=== PATIENT | female | born 1965 | race Two or more races ===

== ENCOUNTER 2025-03-19 23:44 | Inpatient (IN) | payer OTHER ==
[2025-03-20 00:24] VITALS: BMI 27.1
[2025-03-20 01:50] LABS: POTASSIUM 5.1 mmol/L (3.5-5.1); SODIUM 135 mmol/L (136-145)
[2025-03-20 01:53] LABS: ALBUMIN 3.6 g/dl (3.4-5.0); ANION GAP 15 mmol/L (4-13); BLOOD UREA NITROGEN 81.6 mg/dL (7-18); CALCIUM 10.2 mg/dL (8.5-10.1); CHLORIDE 97 mmol/L (98-107); CO2 23 mmol/L (21-32); GLUCOSE,RANDOM 159 mg/dL (74-106)
[2025-03-20 01:56] LABS: SGOT/AST 45 U/L (15-37); SGPT/ALT 66 U/L (13-61)
[2025-03-20 01:58] LABS: BILIRUBIN,TOTAL 0.4 mg/dL (0.2-1); TOT PROT 6.8 g/dl (6.4-8.2)
[2025-03-20 01:59] LABS: ALK PHOS 69 U/L (45-117)
[2025-03-20 02:02] LABS: PHOSPHOROUS 7.5 mg/dL (2.5-4.9)
[2025-03-20 02:19] LABS: ABSOLUTE IMMATURE GRANULOCYTES 0.05 x10^3/uL (0.0-0.031); BASOPHILS # 0.05 x10^3/uL (0.01-0.08); EOSINOPHIL % 2.6 % (0.7-5.8); EOSINOPHILS # 0.22 x10^3/uL (0.04-0.36); HEMATOCRIT 28.1 % (34.1-44.9); HEMOGLOBIN 8.8 g/dL (11.2-15.7); MCHC 31.3 g/dl (32.2-35.5); MEAN CELL VOLUME 85.4 fl (79.4-94.8); MEAN PLT VOLUME 10.2 fl (9.4-12.3); MONOCYTE # 0.56 x10^3/uL (0.24-0.86); MONOCYTE % 6.5 % (4.7-12.5); PLATELET COUNT 219 x10^3/uL (182-369); RDW 18.5 % (12.3-16.6)
[2025-03-20] MEDS: FUROSEMIDE 40 MG/4 ML INJECTABLE VIAL IVPUSH ONE ×2 (02:19→02:36)
[2025-03-20] MEDS: PANTOPRAZOLE SODIUM 40 MG VIAL IVPUSH ONE (02:19)
[2025-03-20] MEDS: FAMOTIDINE 20 MG/50 ML IVPB 20 MG/50 ML MG IVPB ONE (02:19)
[2025-03-20] MEDS: hydrALAZINE HCL 20 MG/ML VIAL IVPUSH ONE (02:19)
[2025-03-20 02:21] LABS: N-TERMINAL BNP 34620.1 pg/ml (5-125)
[2025-03-20] MEDS ORDERED: ACETAMINOPHEN INJECTION 100 ML ONE (02:21)
[2025-03-20] MEDS ORDERED: ONDANSETRON 4 MG/2 ML VIAL ONE (02:21)
[2025-03-20] MEDS: ACETAMINOPHEN 1000 MG/100 ML BAG IVPB ONE (02:36)
[2025-03-20] MEDS: ONDANSETRON 4 MG/2 ML VIAL IVPUSH ONE (02:36)
[2025-03-20 03:27] LABS: CHLORIDE 97 mmol/L (98-107); POTASSIUM 4.8 mmol/L (3.5-5.1); SODIUM 137 mmol/L (136-145)
[2025-03-20 03:28] LABS: CALCIUM 10.1 mg/dL (8.5-10.1)
[2025-03-20 03:29] LABS: ANION GAP 15 mmol/L (4-13); BLOOD UREA NITROGEN 82.2 mg/dL (7-18); CO2 25 mmol/L (21-32); GLUCOSE,RANDOM 148 mg/dL (74-106)
[2025-03-20] MEDS ORDERED: MAG HYDROX/AL HYDROX/SIMETH 30 ML UNIT-DOSE CUP ONE (05:38)
[2025-03-20] MEDS: MAG HYDROX/AL HYDROX/SIMETH 30 ML UNIT-DOSE CUP PO ONE (05:47)
[2025-03-20] MEDS ORDERED: SODIUM CHLORIDE 250 ML IV PRN (08:46)
[2025-03-20] MEDS ORDERED: PROMETHAZINE HCL 25 MG/1 ML VIAL IVPB PRN (10:22)
[2025-03-20] MEDS ORDERED: hydrALAZINE HCL 25 MG TABLET (FP) PO PRN ×2 (11:26→12:36)
[2025-03-20 11:34] LABS: HEPATITIS B SURF AG NON-MATERN NON-REACTIVE (NONREACTIVE)
[2025-03-20 12:03] LABS: HCV DIAGNOSTIC IN-HOUSE W/RFLX NON-REACTIVE (NONREACTIVE)
[2025-03-20] MEDS: EPOETIN ALFA-EPBX 3,000 UNIT/ML VIAL SQ SCH (13:46)
[2025-03-20] MEDS: INSULIN ASPART SLIDING SCALE (NOVOLOG) 1 VIAL SQ SCH (14:45)
[2025-03-20] MEDS ORDERED: NIFEdipine E.R. 30 MG TABLET PO SCH ×3 (15:47→22:00)
[2025-03-20] MEDS: NIFEdipine E.R. 30 MG TABLET PO ONE (16:41)
[2025-03-20] MEDS: hydrALAZINE HCL 50 MG TABLET (FP) PO ONE (16:41)
[2025-03-20] MEDS: ACETAMINOPHEN 325 MG TABLET (FP) PO PRN (18:28)
[2025-03-20] MEDS: LABETALOL HCL 100 MG TABLET (FP) PO SCH (21:06)
[2025-03-20] MEDS: hydrALAZINE HCL 50 MG TABLET (FP) PO SCH (21:06)
[2025-03-20] MEDS: NIFEdipine E.R. 30 MG TABLET PO SCH (21:06)
[2025-03-20] MEDS: DOCUSATE SODIUM 100 MG CAPSULE (FP) PO SCH (21:07)
[2025-03-21] MEDS: NIFEdipine 10 MG CAPSULE (FP) PO SCH (03:44)
[2025-03-21] MEDS: FAMOTIDINE 20 MG/50 ML IVPB 20 MG/50 ML MG IVPB SCH (03:44)
[2025-03-21] MEDS: NIFEdipine E.R. 30 MG TABLET PO SCH (03:45)
[2025-03-21] MEDS: PRAMOXINE HCL 1% (SARNA SENSITIVE) 222 ML BOTTLE TP PRN (06:15)
[2025-03-21 06:39] LABS: HEMATOCRIT 28.8 % (34.1-44.9); HEMOGLOBIN 8.8 g/dL (11.2-15.7); MCHC 30.6 g/dl (32.2-35.5); MEAN CELL VOLUME 86.5 fl (79.4-94.8); MEAN PLT VOLUME 10.4 fl (9.4-12.3); PLATELET COUNT 219 x10^3/uL (182-369); RDW 18.8 % (12.3-16.6)
[2025-03-21 06:43] LABS: POTASSIUM 3.8 mmol/L (3.5-5.1)
[2025-03-21 06:45] LABS: CALCIUM 9.8 mg/dL (8.5-10.1); MAGNESIUM 2.3 mg/dL (1.8-2.4)
[2025-03-21 06:49] LABS: PHOSPHOROUS 5.6 mg/dL (2.5-4.9)
[2025-03-21] MEDS ORDERED: FAMOTIDINE 20 MG/50 ML IVPB 20 MG/50 ML MG IVPB SCH (10:00)
[2025-03-21] MEDS: ONDANSETRON 4 MG/2 ML VIAL IVPUSH PRN (10:09)
[2025-03-21] MEDS: FUROSEMIDE 40 MG TABLET (FP) PO SCH (15:58)
[2025-03-22] MEDS: NIFEdipine E.R 60 MG TABLET PO SCH (00:27)
[2025-03-22] MEDS: GABAPENTIN 100 MG CAPSULE PO ONE (02:28)
[2025-03-22] MEDS: MELATONIN 5 MG TABLETS PO ONE (02:28)
[2025-03-22 07:40] LABS: HEMATOCRIT 28.8 % (34.1-44.9); HEMOGLOBIN 8.8 g/dL (11.2-15.7); MCHC 30.6 g/dl (32.2-35.5); MEAN CELL VOLUME 86.5 fl (79.4-94.8); MEAN PLT VOLUME 11.1 fl (9.4-12.3); PLATELET COUNT 228 x10^3/uL (182-369); RDW 18.9 % (12.3-16.6)
[2025-03-22 08:10] LABS: CHLORIDE 94 mmol/L (98-107); POTASSIUM 4.4 mmol/L (3.5-5.1); SODIUM 136 mmol/L (136-145)
[2025-03-22 08:19] LABS: ALBUMIN 3.6 g/dl (3.4-5.0); BLOOD UREA NITROGEN 41.6 mg/dL (7-18); CALCIUM 10.2 mg/dL (8.5-10.1)
[2025-03-22 08:20] LABS: ANION GAP 13 mmol/L (4-13); CO2 29 mmol/L (21-32); GLUCOSE,RANDOM 92 mg/dL (74-106); MAGNESIUM 2.7 mg/dL (1.8-2.4)
[2025-03-22 08:22] LABS: SGOT/AST 30 U/L (15-37); SGPT/ALT 70 U/L (13-61)
[2025-03-22 08:25] LABS: ALK PHOS 64 U/L (45-117); BILIRUBIN,TOTAL 0.6 mg/dL (0.2-1); TOT PROT 6.4 g/dl (6.4-8.2)
[2025-03-22 08:31] LABS: CREATININE 7.8 mg/dL (0.55-1.3)
[2025-03-22] MEDS ORDERED: SODIUM CHLORIDE 250 ML IV PRN (15:41)
[2025-03-22] MEDS: EPOETIN ALFA-EPBX 10,000 UNIT/ML VIAL IVPUSH ONE (17:58)
[2025-03-22] MEDS: HEPARIN NA (PORCINE) 5,000 UNITS/ML 1ML VIAL SQ SCH (22:55)
[2025-03-23] MEDS ORDERED: INSULIN ASPART SLIDING SCALE (NOVOLOG) 1 VIAL SQ ONE (06:37)
[2025-03-23 08:06] LABS: ABSOLUTE IMMATURE GRANULOCYTES 0.04 x10^3/uL (0.0-0.031); BASOPHILS # 0.04 x10^3/uL (0.01-0.08); EOSINOPHIL % 3.3 % (0.7-5.8); EOSINOPHILS # 0.19 x10^3/uL (0.04-0.36); HEMATOCRIT 31.6 % (34.1-44.9); HEMOGLOBIN 9.3 g/dL (11.2-15.7); MCHC 29.4 g/dl (32.2-35.5); MEAN CELL VOLUME 88.5 fl (79.4-94.8); MEAN PLT VOLUME 10.5 fl (9.4-12.3); PLATELET COUNT 231 x10^3/uL (182-369); RDW 19.6 % (12.3-16.6)
[2025-03-23 08:27] LABS: POTASSIUM 3.8 mmol/L (3.5-5.1)
[2025-03-23 08:38] LABS: CALCIUM 9.5 mg/dL (8.5-10.1)
[2025-03-23 08:39] LABS: ALBUMIN 3.6 g/dl (3.4-5.0); BLOOD UREA NITROGEN 24.1 mg/dL (7-18)
[2025-03-23 08:42] LABS: CREATININE 5.5 mg/dL (0.55-1.3)
[2025-03-23 08:44] LABS: BILIRUBIN,TOTAL 0.5 mg/dL (0.2-1); TOT PROT 6.8 g/dl (6.4-8.2)
[2025-03-23] MEDS ORDERED: guaiFENesin/D-METHORPHAN HB 10 ML UNIT-DOSE CUPS PO PRN (14:47)
[2025-03-24] MEDS ORDERED: REGADENOSON 0.4 MG/5 ML PRE-FILLED SYRINGE IVPUSH ONE (09:44)
[2025-03-24] MEDS: REGADENOSON 0.4 MG/5 ML PRE-FILLED SYRINGE IVPUSH ONE (11:30)
[2025-03-24 13:41] LABS: HEMATOCRIT 33.5 % (34.1-44.9); HEMOGLOBIN 10.1 g/dL (11.2-15.7); MCHC 30.1 g/dl (32.2-35.5); MEAN CELL VOLUME 88.4 fl (79.4-94.8); MEAN PLT VOLUME 9.7 fl (9.4-12.3); PLATELET COUNT 207 x10^3/uL (182-369); RDW 20.3 % (12.3-16.6)
[2025-03-24] MEDS ORDERED: ROCURONIUM BROMIDE 50 MG/5 ML SYRINGE ONE (13:45)
[2025-03-24] MEDS ORDERED: SODIUM CHLORIDE 250 ML IV PRN (15:55)
[2025-03-24 17:13] LABS: POTASSIUM 3.6 mmol/L (3.5-5.1)
[2025-03-24 17:16] LABS: BLOOD UREA NITROGEN 34.3 mg/dL (7-18); CALCIUM 9.4 mg/dL (8.5-10.1)
[2025-03-24 17:20] LABS: CREATININE 6.7 mg/dL (0.55-1.3)
[2025-03-24] MEDS: EPOETIN ALFA-EPBX 10,000 UNIT/ML VIAL IVPUSH ONE (18:47)
[2025-03-25 07:37] LABS: ABSOLUTE IMMATURE GRANULOCYTES 0.06 x10^3/uL (0.0-0.031); BASOPHILS # 0.02 x10^3/uL (0.01-0.08); EOSINOPHIL % 4.6 % (0.7-5.8); EOSINOPHILS # 0.28 x10^3/uL (0.04-0.36); HEMATOCRIT 30.7 % (34.1-44.9); MCHC 29.3 g/dl (32.2-35.5); MEAN CELL VOLUME 89.2 fl (79.4-94.8); MEAN PLT VOLUME 10.7 fl (9.4-12.3); MONOCYTE % 8.2 % (4.7-12.5); PLATELET COUNT 215 x10^3/uL (182-369); RDW 20.2 % (12.3-16.6)
[2025-03-25 07:58] LABS: POTASSIUM 3.7 mmol/L (3.5-5.1)
[2025-03-25 08:06] LABS: CALCIUM 9.5 mg/dL (8.5-10.1)
[2025-03-25 08:08] LABS: ALBUMIN 3.2 g/dl (3.4-5.0); BLOOD UREA NITROGEN 18.4 mg/dL (7-18)
[2025-03-25 08:11] LABS: CREATININE 4.6 mg/dL (0.55-1.3)
[2025-03-25 08:12] LABS: BILIRUBIN,TOTAL 0.6 mg/dL (0.2-1); TOT PROT 6.2 g/dl (6.4-8.2)
[2025-03-25] MEDS: hydrALAZINE HCL 50 MG TABLET (FP) PO SCH (13:07)
[2025-03-25] MEDS ORDERED: SODIUM CHLORIDE 250 ML IV PRN (15:51)
[2025-03-25] MEDS: ATORVASTATIN CA 80 MG TABLET (FP) PO SCH (21:45)
[2025-03-26] MEDS ORDERED: MELATONIN 5 MG TABLETS PO PRN (01:52)
[2025-03-26] MEDS: hydrOXYzine HCL 50 MG TABLET PO ONE (02:20)
[2025-03-26 05:08] VITALS: RESP 18
[2025-03-26] MEDS: EPOETIN ALFA-EPBX 10,000 UNIT/ML VIAL IVPUSH ONE (09:45)
[2025-03-26 09:49] LABS: ALBUMIN 3.1 g/dl (3.4-5.0); BLOOD UREA NITROGEN 37.4 mg/dL (7-18); CALCIUM 9.8 mg/dL (8.5-10.1)
[2025-03-26 09:52] LABS: CREATININE 6.7 mg/dL (0.55-1.3)
[2025-03-26 09:54] LABS: BILIRUBIN,TOTAL 0.6 mg/dL (0.2-1)
[2025-03-26 09:56] LABS: HEMATOCRIT 29.3 % (34.1-44.9); HEMOGLOBIN 8.9 g/dL (11.2-15.7); MCHC 30.4 g/dl (32.2-35.5); MEAN PLT VOLUME 10.4 fl (9.4-12.3); PLATELET COUNT 208 x10^3/uL (182-369); RDW 19.8 % (12.3-16.6)
[2025-03-26 10:06] LABS: TOT PROT 6.1 g/dl (6.4-8.2)
[2025-03-26] MEDS ORDERED: hydrOXYzine HCL 50 MG TABLET PO PRN (13:21)
[2025-03-26] MEDS: ASPIRIN 81 MG CHEWABLE TABLETS PO SCH (13:43)
[2025-03-26] MEDS: hydrOXYzine PAMOATE 25 MG CAPSULE (FP) PO PRN (16:21)
[2025-03-26 18:44] VITALS: BP 140/68; PULSE 78; TEMP 98.2
== END 2025-03-26 18:00 | disposition short-term general hospital (02) | DRG 425 ==
LOC: JER 23:44 → JERBED 03-20 08:36 → J4W 03-20 14:02
PROVIDERS: ADMIT Student in an Organized Health Care Education/Training Program; ATTEND Internal Medicine
PROC: 5A1D70Z Performance of Urinary Filtration, Intermittent, Less than 6 Hours Per Day (ICD-10-PCS; principal; 2025-03-26)
DX: E87.70 Fluid overload, unspecified (principal); J81.1 Chronic pulmonary edema; N18.6 End stage renal disease; I07.1 Rheumatic tricuspid insufficiency; I13.0 Hypertensive heart and chronic kidney disease with heart failure and stage 1 through stage 4 chronic kidney disease, or unspecified chronic kidney disease; I27.20 Pulmonary hypertension, unspecified; I50.9 Heart failure, unspecified; D64.9 Anemia, unspecified; E11.9 Type 2 diabetes mellitus without complications; I16.0 Hypertensive urgency; I25.10 Atherosclerotic heart disease of native coronary artery without angina pectoris; K74.60 Unspecified cirrhosis of liver; K80.20 Calculus of gallbladder without cholecystitis without obstruction; R79.89 Other specified abnormal findings of blood chemistry; Z99.2 Dependence on renal dialysis; K21.9 Gastro-esophageal reflux disease without esophagitis
CPT/HCPCS: 0241U-QW; 36415; 70450-TC; 71045-TC-FY; 71046-TC-FY; 74018-TC-FY; 74176-TC; 76705-TC; 78226-TC; 78452-TC; 80048; 80053; 82140; 82550; 82553; 82962; 83036; 83690; 83735; 83880; 84100; 84484; 85025; 85027; 86704; 86803; 86850; 86900; 86901; 87340; 87517; 93005; 93010; 93017; 93306-TC; 94010; 97116-GP; 99285-25; A9502; A9537; J2785; Q5106